=== PATIENT | female | born 1960 | race Asian ===

== ENCOUNTER 2023-09-07 15:55 | Emergency (ER) | payer OTHER ==
[~2023-09-07] VITALS: Ht 162.6 cm; Wt 59.1 kg
[2023-09-07] MEDS ORDERED: NEBI5TAB11 PO (16:11)
[2023-09-07] MEDS ORDERED: CLOP75TA60 PO (16:11)
[2023-09-07] MEDS ORDERED: TELMISARTAN PO (16:11)
[2023-09-07] MEDS ORDERED: ROSU10TA72 PO (16:11)
[2023-09-07] MEDS ORDERED: SITA1TAB2 PO (16:11)
[2023-09-07] MEDS ORDERED: TELM80TA10 PO (16:11)
[2023-09-07 18:30] VITALS: BP 114/72; PULSE 76; RESP 18; TEMP 98.5
== END 2023-09-07 22:05 | disposition home or self-care (01) ==
LOC: EMS 15:55
DX: S09.90XA Unspecified injury of head, initial encounter (principal); E11.9 Type 2 diabetes mellitus without complications; E78.00 Pure hypercholesterolemia, unspecified; W19.XXXA Unspecified fall, initial encounter; Y93.89 Activity, other specified; Y92.89 Other specified places as the place of occurrence of the external cause; Y99.8 Other external cause status
CPT/HCPCS: 70450; 72125; 93005; 99284